=== PATIENT | female | born 1975 | race Caucasian/White ===

== ENCOUNTER → 2019-12-14 | Outpatient (CLI) | payer OTHER ==
--- NOTE | 2019-12-22 15:31 | RAD ---
EXAM: BILATERAL DIGITAL SCREENING MAMMOGRAPHY. HISTORY: Routine mammographic screening. TECHNIQUE: Bilateral full field digital images were obtained in CC and MLO projections. Computer-aided detection was applied. COMPARISON: 06/07/2016. COMPOSITION: D. The breasts are extremely dense, which lowers the sensitivity of mammography. FINDINGS: Bilateral subpectoral implants appear intact. Scattered calcifications are benign. There are no suspicious masses, microcalcifications or architectural distortion. The parenchymal pattern is stable. BI-RADS CATEGORY 2: Benign. RECOMMENDATION: 1. Routine screening mammography in one year. If mammography demonstrates dense breast tissue (heterogenously dense or extremely dense, category C or D), which could hide abnormalities, and if other risk factors for breast cancer have been identified, supplemental screening tests that may be suggested by the ordering physician may be of benefit. Dense breast tissue, in and of itself, is a relatively common condition. Therefore, this information is not provided to cause undue concern, but rather to raise awareness and to promote discussion with the referring physician regarding the presence of other risk factors, in addition to dense breast tissue. The results of this mammography examination is provided to the patient and referring physician. The patient should contact their referring physician if any questions or concerns exist regarding this report. PQRS compliance statement - Patient information was entered into a reminder system with a target due date for the next mammogram. "Our facility is accredited by the [employer] Mammography [employer]." Electronically signed by: Sylvie Jones MD (12/22/2019 3:27 PM) [id number]
== END | disposition home or self-care (01) ==
LOC: MAMMO 10:31
PROVIDERS: ATTEND Nurse Practitioner Family
DX: Z12.31 Encounter for screening mammogram for malignant neoplasm of breast (principal); N64.89 Other specified disorders of breast; Z98.82 Breast implant status
CPT/HCPCS: 77067